=== PATIENT | female | born 1995 | race African-American/Black ===

== ENCOUNTER 2018-02-10 18:04 | Emergency (ER) | payer MEDICAID ==
[~2018-02-10] VITALS: Ht 160 cm; Wt 77.3 kg
[~2018-02-10 18:04] MED LIST: AMOXICILLIN 50500 MG PO; AMOXICILLIN 8751 TAB PO; MOTRIN 600600 MG/TAB PO; MUCINEX D1 TER PO; PERCOCET 325 MG1 TA2 PO; PREDNISONE20 MG PO; PROAIR HFA0.09 MG/AC IH; VENTOLIN0.09 MG IH
[2018-02-10 18:08] VITALS: BP 139/81; PULSE 79; TEMP 97.4
== END 2018-02-10 19:38 | disposition home or self-care (01) ==
LOC: COL.ER 18:04
DX: S93.402A Sprain of unspecified ligament of left ankle, initial encounter (principal); J45.909 Unspecified asthma, uncomplicated; X50.0XXA Overexertion from strenuous movement or load, initial encounter; Y93.39 Activity, other involving climbing, rappelling and jumping off

== ENCOUNTER 2018-04-26 17:33 | Emergency (ER) | payer MEDICAID ==
[~2018-04-26] VITALS: Ht 157.5 cm; Wt 80.5 kg
[2018-04-26 17:49] VITALS: BP 108/71; TEMP 98.2
[2018-04-26 18:27] LABS: COLLECTION METHOD CLEAN CATCH
[2018-04-26 18:38] LABS: MUCOUS Present /lpf; PH 5 (5-8); URINE APPEARANCE Hazy; URINE BACTERIA None Seen /hpf; URINE BILIRUBIN Negative (NEGATIVE); URINE BLOOD Negative (NEGATIVE); URINE COLOR Yellow; URINE GLUCOSE Negative (NEGATIVE); URINE KETONE Negative (NEGATIVE); URINE LEUKOCYTE ESTERASE Negative (NEGATIVE); URINE NITRATE Negative (NEGATIVE); URINE PROTEIN(semi-quant) 1+ (NEGATIVE); URINE RBC 0-2 /hpf; URINE UROBILINOGEN >=4.0 mg/dL (NEGATIVE)
[2018-04-26 19:51] LABS: ALANINE AMINOTRANSFERASE 29 U/L (9-52); ALBUMIN 3.9 gm/dL (3.5-5.0); ALKALINE PHOSPHATASE 52 U/L (50-136); ANION GAP 10 mmol/L (7-16); AST,SGOT 19 U/L (15-37); BILIRUBIN,TOTAL 1.2 mg/dL (0.0-1.0); BLOOD UREA NITROGEN 10 mg/dL (7-17); CALCIUM 7.8 mg/dL (8.4-10.2); CARBON DIOXIDE 22 mmol/L (22-30); CHLORIDE 104 mmol/L (98-107); CREATININE, serum 0.51 mg/dL (0.52-1.25); GLUCOSE 82 mg/dL (74-106); LIPASE 100 U/L (23-300); POTASSIUM 3.6 mmol/L (3.4-5.0); SODIUM 136 mmol/L (137-145)
[2018-04-26 19:52] LABS: C-REACTIVE PROTEIN < 0.5 mg/dL (0.0-0.9)
[2018-04-26 20:27] LABS: BASO # 0.1 (0.0-0.2); BASO % 0.5 % (0.0-2.0); EOS # 0.1 (0.0-0.7); EOS % 0.8 % (0-4.0); GRAN # 7.3 (1.4-6.5); GRAN % 72.8 % (42.2-75.2); HEMATOCRIT 37.6 % (37.0-47.0); HEMOGLOBIN 12.7 g/dl (12.5-16.0); LYMPH # 1.8 (1.2-3.4); LYMPH % 18.5 % (20.0-51.0); MEAN CELL VOLUME 87 fl (80.0-100.0); MEAN CORPUSCULAR HEMOGLOBIN 30 pg (27.0-31.0); MEAN CORPUSCULAR HGB CONC 34 g/dl (33.0-37.0); MEAN PLATELET VOLUME 11.3 fl (7.4-10.4); MONO # 0.7 (0.1-0.6); MONO % 7.2 % (1.7-9.3); PLATELET COUNT 90 K/mm3 (130-400); REDCELL DISTRIBUTION WIDTH-CV 13.5 % (11.5-14.5)
[2018-04-26] MEDS ORDERED: ZOFRAN ODT4 MG PO (20:39)
[2018-04-26 20:51] VITALS: PULSE 57
== END 2018-04-26 20:51 | disposition home or self-care (01) ==
LOC: COL.ER 17:33
PROVIDERS: Emergency Medicine; Nurse Practitioner
DX: R10.13 Epigastric pain (principal); R19.7 Diarrhea, unspecified; J45.909 Unspecified asthma, uncomplicated
CPT/HCPCS: J2405; J7030

== ENCOUNTER 2019-02-27 19:45 | Emergency (ER) | payer MEDICAID ==
[~2019-02-27] VITALS: Ht 157.5 cm; Wt 93.2 kg
[~2019-02-27 19:45] MED LIST changes: +ZOFRAN ODT4 MG PO
[2019-02-27 19:59] VITALS: BP 133/82; TEMP 97.2
[2019-02-27 20:48] LABS: BASO # 0.1 (0.0-0.2); BASO % 1.1 % (0.0-2.0); EOS # 0.3 (0.0-0.7); EOS % 4.1 % (0-4.0); GRAN # 3.6 (1.4-6.5); HEMATOCRIT 40.9 % (37.0-47.0); LYMPH % 30.3 % (20.0-51.0); MEAN CELL VOLUME 89 fl (80.0-100.0); MEAN CORPUSCULAR HEMOGLOBIN 30 pg (27.0-31.0); MEAN CORPUSCULAR HGB CONC 34 g/dl (33.0-37.0); MEAN PLATELET VOLUME 10.7 fl (7.4-10.4); MONO # 0.6 (0.1-0.6); MONO % 9.3 % (1.7-9.3); PLATELET COUNT 248 K/mm3 (130-400); REDCELL DISTRIBUTION WIDTH-CV 12.7 % (11.5-14.5)
[2019-02-27 20:50] LABS: COLLECTION METHOD CLEAN CATCH
[2019-02-27 20:56] LABS: MUCOUS Present /lpf; PH 7 (5-8); URINE APPEARANCE Hazy; URINE BACTERIA Rare /hpf; URINE BILIRUBIN Negative (NEGATIVE); URINE BLOOD Negative (NEGATIVE); URINE COLOR Yellow; URINE GLUCOSE Negative (NEGATIVE); URINE KETONE Negative (NEGATIVE); URINE LEUKOCYTE ESTERASE Negative (NEGATIVE); URINE NITRATE Negative (NEGATIVE); URINE PROTEIN(semi-quant) Negative (NEGATIVE); URINE RBC 0-2 /hpf; URINE UROBILINOGEN >=4.0 mg/dL (NEGATIVE)
[2019-02-27 21:02] LABS: ALANINE AMINOTRANSFERASE 13 U/L (9-52); ALBUMIN 4.1 gm/dL (3.5-5.0); ALKALINE PHOSPHATASE 51 U/L (50-136); ANION GAP 11 mmol/L (7-16); AST,SGOT 15 U/L (15-37); BILIRUBIN,TOTAL 0.7 mg/dL (0.0-1.0); BLOOD UREA NITROGEN 18 mg/dL (7-17); CALCIUM 8.5 mg/dL (8.4-10.2); CARBON DIOXIDE 24 mmol/L (22-30); CHLORIDE 107 mmol/L (98-107); CREATININE, serum 0.71 (0.52-1.25); GLUCOSE 97 mg/dL (74-106); LIPASE 157 U/L (23-300); POTASSIUM 3.7 mmol/L (3.4-5.0); SODIUM 142 mmol/L (137-145); TOTAL PROTEIN 7.4 gm/dL (6.4-8.2)
[2019-02-27 21:03] LABS: C-REACTIVE PROTEIN < 0.5 mg/dL (0.0-0.9)
[2019-02-27] MEDS ORDERED: ZOFRAN ODT4 MG PO (21:09)
[2019-02-27 21:21] VITALS: PULSE 91
== END 2019-02-27 21:22 | disposition home or self-care (01) ==
LOC: COL.ER 19:45
PROVIDERS: Nurse Practitioner
DX: R10.12 Left upper quadrant pain (principal); J45.909 Unspecified asthma, uncomplicated; F17.210 Nicotine dependence, cigarettes, uncomplicated

== ENCOUNTER 2019-04-05 03:48 | Emergency (ER) | payer MEDICAID ==
[~2019-04-05] VITALS: Ht 157.5 cm; Wt 89.5 kg
[2019-04-05 04:49] VITALS: BP 114/67; PULSE 62; TEMP 97.9
== END 2019-04-05 05:08 | disposition home or self-care (01) ==
LOC: COL.ER 03:48
DX: M79.631 Pain in right forearm (principal); J45.909 Unspecified asthma, uncomplicated

== ENCOUNTER 2019-05-16 09:11 | Emergency (ER) | payer MEDICAID ==
[~2019-05-16] VITALS: Ht 160 cm; Wt 86.4 kg
[2019-05-16 09:15] VITALS: BP 132/91; TEMP 97.3
[2019-05-16] MEDS ORDERED: NEB MC (12:29)
[2019-05-16] MEDS ORDERED: RT ALBUTER2.5 MG/0.5 IH (12:29)
[2019-05-16] MEDS ORDERED: PREDNISONE20 MG PO (12:30)
[2019-05-16 13:05] VITALS: PULSE 107
== END 2019-05-16 13:05 | disposition home or self-care (01) ==
LOC: COL.ER 09:11
DX: T48.6X1A Poisoning by antiasthmatics, accidental (unintentional), initial encounter (principal); J45.901 Unspecified asthma with (acute) exacerbation; R07.89 Other chest pain; R00.0 Tachycardia, unspecified; F17.210 Nicotine dependence, cigarettes, uncomplicated
CPT/HCPCS: J2060; J2930; J7030

== ENCOUNTER 2020-04-27 17:22 | Emergency (ER) | payer MEDICAID ==
[~2020-04-27] VITALS: Ht 165.1 cm; Wt 90.9 kg
[~2020-04-27 17:22] MED LIST changes: +NEB MC; +RT ALBUTER2.5 MG/0.5 IH
[2020-04-27 17:26] VITALS: BP 120/82; TEMP 97.8
[2020-04-27 17:38] VITALS: PULSE 104
[2020-04-27] MEDS ORDERED: PROAIR HFA0.09 MG/AC IH (17:38)
== END 2020-04-27 17:50 | disposition home or self-care (01) ==
LOC: COL.ER 17:22
DX: S50.861A Insect bite (nonvenomous) of right forearm, initial encounter (principal); J45.909 Unspecified asthma, uncomplicated; F17.210 Nicotine dependence, cigarettes, uncomplicated; W57.XXXA Bitten or stung by nonvenomous insect and other nonvenomous arthropods, initial encounter

== ENCOUNTER 2023-02-26 23:19 | Emergency (ER) | payer MEDICAID ==
[~2023-02-26] VITALS: Ht 152.4 cm; Wt 93.6 kg
[~2023-02-26 23:19] MED LIST changes: +DOXYCYCLINE 10100 MG PO
[2023-02-26 23:23] VITALS: TEMP 98.2
[2023-02-26] MEDS ORDERED: PREDNISONE20 MG PO (23:42)
[2023-02-26 23:51] VITALS: BP 120/76; PULSE 88
== END 2023-02-26 23:51 | disposition home or self-care (01) ==
LOC: COL.ER 23:19
DX: S00.86XA Insect bite (nonvenomous) of other part of head, initial encounter (principal); L08.9 Local infection of the skin and subcutaneous tissue, unspecified; W57.XXXA Bitten or stung by nonvenomous insect and other nonvenomous arthropods, initial encounter
CPT/HCPCS: J7512